=== PATIENT | female | born 1975 | race American Indian/Alaskan Native ===

== ENCOUNTER 2017-10-08 20:43 | Emergency (ER) | payer OTHER, BC ==
[2017-10-08] MEDS ORDERED: MOTRIN PO ONE (21:26)
[2017-10-08] MEDS ORDERED: FLEXERIL PO ONE (22:59)
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
[2017-10-08 23:18] VITALS: BP 127/71
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
== END 2017-10-09 00:23 | disposition home or self-care (01) ==
LOC: ED 20:43
DX: S20.219A Contusion of unspecified front wall of thorax, initial encounter (principal); S00.83XA Contusion of other part of head, initial encounter; S13.4XXA Sprain of ligaments of cervical spine, initial encounter; S39.012A Strain of muscle, fascia and tendon of lower back, initial encounter; V49.49XA Driver injured in collision with other motor vehicles in traffic accident, initial encounter; Y93.89 Activity, other specified; Y92.89 Other specified places as the place of occurrence of the external cause; Y99.8 Other external cause status
CPT/HCPCS: 70486; 71250; 72072; 72100; 72125; 93005; 93010

== ENCOUNTER 2018-02-05 14:17 | Outpatient (CLI) | payer BC ==
--- NOTE | 2018-02-08 08:40 | Mammography Report ---
BILATERAL DIGITAL SCREENING MAMMOGRAM with CAD: 02/05/18 14:17:00 CLINICAL: Baseline screening. FINDINGS: The breasts are mostly fatty with a few bilateral scattered fibroglandular densities.No mass, architectural distortion or suspicious calcifications. IMPRESSION: No mammographic evidence of malignancy. BI-RADS CATEGORY: 1 -- Negative RECOMMENDATION: Routine mammographic screening in one year. COMMENT: Patient follow-up letters are generated by our [employer] application.
== END 2018-02-05 14:18 | disposition home or self-care (01) ==
LOC: MAMMO 14:17
PROVIDERS: ATTEND Internal Medicine
DX: Z12.31 Encounter for screening mammogram for malignant neoplasm of breast (principal)
CPT/HCPCS: 77067

== ENCOUNTER 2019-05-11 09:16 | Outpatient (CLI) | payer BC ==
--- NOTE | 2019-05-11 11:22 | Mammography Report ---
DIGITAL SCREENING MAMMOGRAM WITH CAD, 05/11/2019 INDICATION: Routine screening mammography. TECHNIQUE: Digital bilateral 2D mammography was obtained in the craniocaudal and mediolateral obliq ue projections. This examination was interpreted with the benefit of Computer-Aided Detection analysi s. COMPARISON: 02/05/18 FINDINGS: Breast Density: There are scattered areas of fibroglandular density. There is no evidence of dominant mass, suspicious calcifications or architectural distortion in eithe r breast. IMPRESSION: No mammographic evidence of malignancy. Follow up recommendation: Routine yearly BI-RADS Category 1: Negative. A "normal" or negative report should not discourage follow up or biopsy of a clinically significant f inding. A written summary of these findings will be mailed to the patient. The patient will be entered into a mammography reporting system which will generate a reminder letter for the patient's next appointmen t at the appropriate interval. The [employer] recommends yearly mammograms starting at age 40 and continuing as l jeannie as a woman is in good health. Breast MRI is recommended for women with an approximate 20-25% or greater lifetime risk of breast cancer, including women with a strong family history of breast or ova faith cancer or who have been treated for Hodgkin's disease. Signer Name: Marquis Menjivar MD Signed: 05/11/2019 11:18 AM Workstation Name: [id number]
== END 2019-05-11 09:17 | disposition home or self-care (01) ==
LOC: MAMMO 09:16
PROVIDERS: ATTEND Family Medicine
DX: Z12.31 Encounter for screening mammogram for malignant neoplasm of breast (principal); N64.89 Other specified disorders of breast
CPT/HCPCS: 77067

== ENCOUNTER 2020-05-14 09:11 | Outpatient (CLI) | payer BC ==
--- NOTE | 2020-05-14 13:06 | Mammography Report ---
DIGITAL SCREENING MAMMOGRAM WITH TOMOSYNTHESIS WITH CAD, 05/14/2020 CLINICAL INFORMATION / INDICATION: Routine Screening Mammography. TECHNIQUE: Digital bilateral 2D and 3D mammography with tomosynthesis was obtained in the craniocaud al and mediolateral oblique projections. Computer-Aided Detection (CAD) analysis was used for interp retation of this study. COMPARISON: 05/11/2019 FINDINGS: Breast Density: There are scattered areas of fibroglandular density. No dominant mass, suspicious calcifications, or architectural distortion in either breast. IMPRESSION: No mammographic evidence of malignancy. Follow up recommendation: Routine yearly BI-RADS Category 1: Negative. A "normal" or negative report should not discourage follow up or biopsy of a clinically significant f inding. A written summary of these findings will be mailed to the patient. The patient will be entered into a mammography reporting system which will generate a reminder letter for the patient's next appointmen t at the appropriate interval. The [employer] recommends yearly mammograms starting at age 40 and continuing as l jeannie as a woman is in good health. Breast MRI is recommended for women with an approximate 20-25% or greater lifetime risk of breast cancer, including women with a strong family history of breast or ova faith cancer or who have been treated for Hodgkin's disease. Signer Name: Parker Mercado MD Signed: 05/14/2020 1:01 PM Workstation Name: [id number]
== END 2020-05-14 09:12 | disposition home or self-care (01) ==
LOC: SPVWC 09:11
PROVIDERS: ATTEND Obstetrics & Gynecology
DX: Z12.31 Encounter for screening mammogram for malignant neoplasm of breast (principal)
CPT/HCPCS: 77063; 77067

== ENCOUNTER 2021-05-28 08:58 | Outpatient (CLI) | payer BC | END 2021-05-28 08:59 | disposition home or self-care (01) | LOC: SPVWC 08:58 | PROVIDERS: ATTEND Obstetrics & Gynecology | DX: Z12.31 Encounter for screening mammogram for malignant neoplasm of breast (principal) | CPT/HCPCS: 77067 ==